=== PATIENT | female | born 1975 | race African-American/Black ===

== ENCOUNTER 2018-05-02 10:27 | Inpatient (IN) ==
[2018-05-02] MEDS ORDERED: ASPIRIN 325 MG TABLET PO STA (11:11)
[2018-05-02] MEDS ORDERED: APIXABAN 5 MG TABLET PO SCH (13:00)
[2018-05-02 13:01] LABS: Basophils % 0.2 % (0.0-0.8); Eosinophils # 0.1 10*3/uL (0.0-0.87); Eosinophils % 1.1 % (0.00-10.9); Hematocrit 34.5 VOL% (35.7-47.0); Hemoglobin 11.3 GM/DL (12.0-16.0); Immature Granulocytes % 0.4 %; Immature Granulocytes Absolute 0.04 #; Lymphocytes # 1.2 10*3/uL (1.4-4.0); Lymphocytes % 10.2 % (21.3-54.2); Mean Corpuscular HGB Conc 32.8 GM/DL (32-36); Mean Corpuscular Hemoglobin 29 PG (27-34); Mean Corpuscular Volume 88.5 FL (87-102); Mean Platelet Volume 9.6 FL (9.6-12.0); Monocytes # 0.8 10*3/uL (0.11-0.8); Monocytes % 7.1 % (1.7-12.7); Neutrophils # 9.2 10*3/uL (1.4-7.4); Platelet Count 278 T/CUMM (130-400); Red Cell Distribution Width 12.8 % (9.3-17.3); White Blood Count 11.3 T/CUMM (4-12)
[2018-05-02 13:14] LABS: Apearance,Urine CLOUDY (Clear); Bacteria,Urine Occasional /HPF (Few); Bilirubin,Urine Negative (Negative); Blood, Urine Negative (Negative); Glucose,Urine (UA) Negative (Negative); Ketones,Urine Negative (Negative); Mucus,Urine Occasional /LPF (Occasional); Nitrite,Urine Negative (Negative); Protein,Urine 30 MG/DL; RBC,Urine 25 /HPF (0-4); Squamous Epithelial Cell,Urine Moderate /HPF (0-10); Urine Color Amber (Yellow); Urine Specific Gravity 1.021 (1.001-1.035); WBC,Urine 23 /HPF (0-6)
[2018-05-02 13:26] LABS: Albumin 2.9 G/DL (3.4-5.0); Bilirubin,Total 1.6 MG/DL (0.2-1.0); Calcium 8.6 MG/DL (8.5-10.1); Osmolality,Calculated 270.1 MOS/KG (273-304); Potassium 4.1 MMOL/L (3.5-5.1); Total Protein 7.7 G/DL (6.4-8.3)
[2018-05-02 14:38] LABS: INR 1.1; PT Patient Result 11.4 SECS; Partial Thromboplastin Time 30.2 SECS (0-40)
[2018-05-02] MEDS ORDERED: ONDANSETRON 4 MG/2 ML VIAL IV PRN (14:38)
[2018-05-02] MEDS: HEPARIN DRIP 25,000 UNITS/500 ML PREMIX IV SCH (17:30)
[2018-05-02] MEDS: WARFARIN 5 MG TABLET PO SCH (17:30)
[2018-05-02] MEDS: cefTRIAXone 1,000 MG in SYRINGE 1 EACH IV SCH (17:30)
[2018-05-03] MEDS: HEPARIN DRIP 25,000 UNITS/500 ML PREMIX IV SCH ×4 (02:21→22:24)
[2018-05-03 03:16] LABS: ABG Base Excess 0.5 MMOL/L (-2.5-2.5); ABG HCO3 24.7 MMOL/L (20-26); ABG Oxygen Saturation 92.3 % (95-100); ABG PCO2 38.4 MM HG (35-48); ABG PH 7.418 (7.35-7.45); ABG PO2 64.6 MM HG (80-95); ABG TCO2 22.4 MMOL/L (23-27); Allen Test Positive; Pt O2 Delivery Device Room Air
[2018-05-03 04:20] LABS: Basophils % 0.2 % (0.0-0.8); Eosinophils # 0.2 10*3/uL (0.0-0.87); Eosinophils % 1.3 % (0.00-10.9); Hematocrit 31.7 VOL% (35.7-47.0); Hemoglobin 10.5 GM/DL (12.0-16.0); Immature Granulocytes % 0.4 %; Immature Granulocytes Absolute 0.05 #; Lymphocytes % 8.5 % (21.3-54.2); Mean Corpuscular HGB Conc 33.1 GM/DL (32-36); Mean Corpuscular Hemoglobin 29 PG (27-34); Mean Corpuscular Volume 86.6 FL (87-102); Mean Platelet Volume 10.1 FL (9.6-12.0); Monocytes # 0.9 10*3/uL (0.11-0.8); Monocytes % 7.9 % (1.7-12.7); Neutrophils # 9.4 10*3/uL (1.4-7.4); Neutrophils % 81.7 % (38.7-73.9); Platelet Count 278 T/CUMM (130-400); Red Blood Count 3.66 MC/CUMM (3.8-5.5); Red Cell Distribution Width 12.7 % (9.3-17.3); White Blood Count 11.5 T/CUMM (4-12)
[2018-05-03 04:37] LABS: INR 1.1; PT Patient Result 11.2 SECS
[2018-05-03 05:07] LABS: Calcium 8.6 MG/DL (8.5-10.1); Osmolality,Calculated 272.8 MOS/KG (273-304); Potassium 3.6 MMOL/L (3.5-5.1); Risk Ratio 5.3; Thyroid Stimulating Hormone 2.29 uIU/ml (0.358-3.74); VLDL CHOLESTEROL 19.6 MG/DL
[2018-05-03 08:59] LABS: INR 1.1; PT Patient Result 11.4 SECS
[2018-05-03 09:10] LABS: Partial Thromboplastin Time 108.3 SECS (0-40)
[2018-05-03] MEDS: amLODIPine 10 MG TABLET PO SCH (10:33)
[2018-05-03] MEDS: PANTOPRAZOLE 40 MG TABLET PO SCH (10:33)
[2018-05-03] MEDS: METOPROLOL TARTRATE 25 MG TABLET PO SCH (10:33)
[2018-05-03] MEDS: cefTRIAXone 1,000 MG in SYRINGE 1 EACH IV SCH (15:43)
[2018-05-03] MEDS: WARFARIN 5 MG TABLET PO SCH (18:47)
[2018-05-03] MEDS: ROSUVASTATIN 10 MG TABLET PO SCH (22:22)
[2018-05-04] MEDS: MORPHINE 4 MG/1 ML VIAL IV PRN ×2 (04:33→18:37)
[2018-05-04 04:51] LABS: Basophils # 0.1 10*3/uL (0.0-0.2); Basophils % 0.4 % (0.0-0.8); Eosinophils # 0.2 10*3/uL (0.0-0.87); Eosinophils % 1.5 % (0.00-10.9); Hematocrit 33.7 VOL% (35.7-47.0); Hemoglobin 11.2 GM/DL (12.0-16.0); Immature Granulocytes % 0.6 %; Immature Granulocytes Absolute 0.08 #; Lymphocytes # 1.5 10*3/uL (1.4-4.0); Lymphocytes % 11.5 % (21.3-54.2); Mean Corpuscular HGB Conc 33.2 GM/DL (32-36); Mean Corpuscular Hemoglobin 29 PG (27-34); Mean Platelet Volume 10.1 FL (9.6-12.0); Monocytes # 1.1 10*3/uL (0.11-0.8); Neutrophils # 10.4 10*3/uL (1.4-7.4); Platelet Count 278 T/CUMM (130-400); Red Blood Count 3.92 MC/CUMM (3.8-5.5); Red Cell Distribution Width 12.8 % (9.3-17.3); White Blood Count 13.3 T/CUMM (4-12)
[2018-05-04 05:29] LABS: Calcium 9.1 MG/DL (8.5-10.1); Osmolality,Calculated 270.1 MOS/KG (273-304); Potassium 3.7 MMOL/L (3.5-5.1)
[2018-05-04] MEDS: HEPARIN DRIP 25,000 UNITS/500 ML PREMIX IV SCH ×3 (08:33→17:46)
[2018-05-04] MEDS: PANTOPRAZOLE 40 MG TABLET PO SCH (08:48)
[2018-05-04] MEDS: amLODIPine 10 MG TABLET PO SCH (08:48)
[2018-05-04] MEDS: METOPROLOL TARTRATE 25 MG TABLET PO SCH (08:48)
[2018-05-04] MEDS ORDERED: BISACODYL 5 MG TABLET PO PRN (10:51)
[2018-05-04] MEDS ORDERED: DOCUSATE SODIUM 100 MG CAPSULE PO PRN (10:51)
[2018-05-04] MEDS: POLYETHYLENE GLYCOL POWDER 17 GM PACK PO SCH (13:49)
[2018-05-04 14:20] LABS: INR 1.1; PT Patient Result 11.5 SECS
[2018-05-04] MEDS: DOCUSATE SODIUM 100 MG CAPSULE PO SCH ×2 (14:53→21:20)
[2018-05-04] MEDS: cefTRIAXone 1,000 MG in SYRINGE 1 EACH IV SCH (14:54)
[2018-05-04] MEDS: WARFARIN 7.5 MG TABLET PO SCH (17:34)
[2018-05-04] MEDS: ROSUVASTATIN 10 MG TABLET PO SCH (21:20)
[2018-05-05] MEDS: MORPHINE 4 MG/1 ML VIAL IV PRN (01:56)
[2018-05-05] MEDS: HEPARIN DRIP 25,000 UNITS/500 ML PREMIX IV SCH ×4 (03:11→23:21)
[2018-05-05 05:50] LABS: Basophils % 0.3 % (0.0-0.8); Eosinophils # 0.2 10*3/uL (0.0-0.87); Eosinophils % 1.5 % (0.00-10.9); Hematocrit 30.2 VOL% (35.7-47.0); Hemoglobin 9.7 GM/DL (12.0-16.0); Immature Granulocytes % 0.8 %; Immature Granulocytes Absolute 0.08 #; Lymphocytes # 1.3 10*3/uL (1.4-4.0); Lymphocytes % 12.7 % (21.3-54.2); Mean Corpuscular HGB Conc 32.1 GM/DL (32-36); Mean Corpuscular Hemoglobin 28 PG (27-34); Mean Corpuscular Volume 88.6 FL (87-102); Mean Platelet Volume 9.9 FL (9.6-12.0); Monocytes # 0.9 10*3/uL (0.11-0.8); Monocytes % 8.5 % (1.7-12.7); Neutrophils # 7.9 10*3/uL (1.4-7.4); Neutrophils % 76.2 % (38.7-73.9); Platelet Count 211 T/CUMM (130-400); Red Blood Count 3.41 MC/CUMM (3.8-5.5); Red Cell Distribution Width 12.5 % (9.3-17.3); White Blood Count 10.3 T/CUMM (4-12)
[2018-05-05 05:54] LABS: INR 1.1
[2018-05-05 06:14] LABS: Osmolality,Calculated 272.8 MOS/KG (273-304); Potassium 3.5 MMOL/L (3.5-5.1)
[2018-05-05] MEDS: PANTOPRAZOLE 40 MG TABLET PO SCH (08:59)
[2018-05-05] MEDS: POLYETHYLENE GLYCOL POWDER 17 GM PACK PO SCH (09:00)
[2018-05-05] MEDS: METOPROLOL TARTRATE 25 MG TABLET PO SCH (09:00)
[2018-05-05] MEDS: DOCUSATE SODIUM 100 MG CAPSULE PO SCH ×3 (09:00→20:46)
[2018-05-05] MEDS: amLODIPine 10 MG TABLET PO SCH (09:00)
[2018-05-05] MEDS: cefTRIAXone 1,000 MG in SYRINGE 1 EACH IV SCH (14:44)
[2018-05-05] MEDS: WARFARIN 7.5 MG TABLET PO SCH (18:24)
[2018-05-05] MEDS: ROSUVASTATIN 10 MG TABLET PO SCH (20:45)
[2018-05-06] MEDS: HEPARIN DRIP 25,000 UNITS/500 ML PREMIX IV SCH ×3 (09:36→18:33)
[2018-05-06] MEDS: DOCUSATE SODIUM 100 MG CAPSULE PO SCH ×3 (09:37→20:52)
[2018-05-06] MEDS: PANTOPRAZOLE 40 MG TABLET PO SCH (09:37)
[2018-05-06] MEDS: amLODIPine 10 MG TABLET PO SCH (09:37)
[2018-05-06] MEDS: METOPROLOL TARTRATE 25 MG TABLET PO SCH (09:37)
[2018-05-06] MEDS: POLYETHYLENE GLYCOL POWDER 17 GM PACK PO SCH (09:37)
[2018-05-06] MEDS: cefTRIAXone 1,000 MG in SYRINGE 1 EACH IV SCH (14:45)
[2018-05-06] MEDS: WARFARIN 7.5 MG TABLET PO SCH (18:03)
[2018-05-06] MEDS: ROSUVASTATIN 10 MG TABLET PO SCH (20:52)
[2018-05-07] MEDS: HEPARIN DRIP 25,000 UNITS/500 ML PREMIX IV SCH ×2 (03:19→15:21)
[2018-05-07 06:59] LABS: INR 1.3; PT Patient Result 13.9 SECS
[2018-05-07] MEDS: DOCUSATE SODIUM 100 MG CAPSULE PO SCH ×3 (09:03→20:22)
[2018-05-07] MEDS: amLODIPine 10 MG TABLET PO SCH (09:03)
[2018-05-07] MEDS: PANTOPRAZOLE 40 MG TABLET PO SCH (09:03)
[2018-05-07] MEDS: POLYETHYLENE GLYCOL POWDER 17 GM PACK PO SCH (09:03)
[2018-05-07] MEDS: METOPROLOL TARTRATE 25 MG TABLET PO SCH (09:03)
[2018-05-07] MEDS: cefTRIAXone 1,000 MG in SYRINGE 1 EACH IV SCH (15:21)
[2018-05-07] MEDS: WARFARIN 7.5 MG TABLET PO SCH (17:35)
[2018-05-07] MEDS: ROSUVASTATIN 10 MG TABLET PO SCH (20:22)
[2018-05-08] MEDS ORDERED: SIMETHICONE CHEW 125 MG TABLET PO SCH (00:30)
[2018-05-08] MEDS: HEPARIN DRIP 25,000 UNITS/500 ML PREMIX IV SCH (01:50)
[2018-05-08 05:48] LABS: INR 1.3
[2018-05-08] MEDS: PANTOPRAZOLE 40 MG TABLET PO SCH (09:22)
[2018-05-08] MEDS: METOPROLOL TARTRATE 25 MG TABLET PO SCH (09:22)
[2018-05-08] MEDS: DOCUSATE SODIUM 100 MG CAPSULE PO SCH ×3 (09:22→21:07)
[2018-05-08] MEDS: amLODIPine 10 MG TABLET PO SCH (09:22)
[2018-05-08] MEDS: POLYETHYLENE GLYCOL POWDER 17 GM PACK PO SCH (09:22)
[2018-05-08] MEDS: cefTRIAXone 1,000 MG in SYRINGE 1 EACH IV SCH (15:35)
[2018-05-08] MEDS: WARFARIN 10 MG TABLET PO SCH (18:41)
[2018-05-08] MEDS: ROSUVASTATIN 10 MG TABLET PO SCH (21:07)
[2018-05-09] MEDS: HEPARIN DRIP 25,000 UNITS/500 ML PREMIX IV SCH ×2 (02:00→14:57)
[2018-05-09 05:42] LABS: Basophils % 0.3 % (0.0-0.8); Eosinophils # 0.3 10*3/uL (0.0-0.87); Eosinophils % 2.7 % (0.00-10.9); Hemoglobin 9.6 GM/DL (12.0-16.0); Immature Granulocytes % 2.1 %; Lymphocytes # 1.5 10*3/uL (1.4-4.0); Lymphocytes % 15.8 % (21.3-54.2); Mean Corpuscular HGB Conc 33.1 GM/DL (32-36); Mean Corpuscular Hemoglobin 28 PG (27-34); Mean Corpuscular Volume 85.8 FL (87-102); Mean Platelet Volume 9.9 FL (9.6-12.0); Monocytes # 0.7 10*3/uL (0.11-0.8); Monocytes % 6.8 % (1.7-12.7); NRBC # 0.05 10*3/uL; Neutrophils % 72.3 % (38.7-73.9); Platelet Count 185 T/CUMM (130-400); Red Blood Count 3.38 MC/CUMM (3.8-5.5); White Blood Count 9.7 T/CUMM (4-12)
[2018-05-09 05:47] LABS: INR 1.5; PT Patient Result 15.6 SECS
[2018-05-09 06:07] LABS: Calcium 8.6 MG/DL (8.5-10.1); Osmolality,Calculated 276.5 MOS/KG (273-304); Potassium 3.7 MMOL/L (3.5-5.1)
[2018-05-09 06:12] LABS: Band Neutrophils 8 % (0-10); Eosinophils 2 % (0-10); Lymphocytes 13 % (20-55); Segmented Neutrophils 73 % (50-85); Total Cells Counted 100
[2018-05-09 06:13] LABS: Anisocytosis Slight; Giant Platelets Few; Platelet Estimate Adequate
[2018-05-09] MEDS: DOCUSATE SODIUM 100 MG CAPSULE PO SCH ×3 (09:01→22:40)
[2018-05-09] MEDS: PANTOPRAZOLE 40 MG TABLET PO SCH (09:01)
[2018-05-09] MEDS: POLYETHYLENE GLYCOL POWDER 17 GM PACK PO SCH (09:02)
[2018-05-09] MEDS: METOPROLOL TARTRATE 25 MG TABLET PO SCH (09:02)
[2018-05-09] MEDS: amLODIPine 10 MG TABLET PO SCH (09:04)
[2018-05-09] MEDS: cefTRIAXone 1,000 MG in SYRINGE 1 EACH IV SCH (16:34)
[2018-05-09] MEDS: WARFARIN 10 MG TABLET PO SCH (17:51)
[2018-05-09] MEDS: ROSUVASTATIN 10 MG TABLET PO SCH (20:18)
[2018-05-10] MEDS: HEPARIN DRIP 25,000 UNITS/500 ML PREMIX IV SCH ×2 (02:55→17:36)
[2018-05-10 04:25] LABS: Basophils % 0.3 % (0.0-0.8); Eosinophils # 0.2 10*3/uL (0.0-0.87); Eosinophils % 1.9 % (0.00-10.9); Hematocrit 28.8 VOL% (35.7-47.0); Hemoglobin 9.4 GM/DL (12.0-16.0); Immature Granulocytes % 2.4 %; Immature Granulocytes Absolute 0.29 #; Lymphocytes # 2.1 10*3/uL (1.4-4.0); Lymphocytes % 17.6 % (21.3-54.2); Mean Corpuscular HGB Conc 32.6 GM/DL (32-36); Mean Corpuscular Hemoglobin 29 PG (27-34); Mean Corpuscular Volume 87.3 FL (87-102); Mean Platelet Volume 9.8 FL (9.6-12.0); Monocytes # 0.8 10*3/uL (0.11-0.8); Monocytes % 6.6 % (1.7-12.7); NRBC # 0.05 10*3/uL; Neutrophils # 8.6 10*3/uL (1.4-7.4); Neutrophils % 71.2 % (38.7-73.9); Platelet Count 175 T/CUMM (130-400); Red Cell Distribution Width 13.1 % (9.3-17.3)
[2018-05-10 04:47] LABS: Band Neutrophils 1 % (0-10); Lymphocytes 22 % (20-55); Platelet Estimate Normal; Segmented Neutrophils 70 % (50-85); Total Cells Counted 100
[2018-05-10 04:48] LABS: Calcium 8.8 MG/DL (8.5-10.1); Osmolality,Calculated 274.7 MOS/KG (273-304); Potassium 3.9 MMOL/L (3.5-5.1)
[2018-05-10 07:15] LABS: INR 1.9; PT Patient Result 19.3 SECS
[2018-05-10] MEDS: METOPROLOL TARTRATE 25 MG TABLET PO SCH (09:08)
[2018-05-10] MEDS: POLYETHYLENE GLYCOL POWDER 17 GM PACK PO SCH (09:08)
[2018-05-10] MEDS: PANTOPRAZOLE 40 MG TABLET PO SCH (09:08)
[2018-05-10] MEDS: DOCUSATE SODIUM 100 MG CAPSULE PO SCH ×3 (09:08→20:51)
[2018-05-10] MEDS: amLODIPine 10 MG TABLET PO SCH (09:08)
[2018-05-10] MEDS: cefTRIAXone 1,000 MG in SYRINGE 1 EACH IV SCH (15:13)
[2018-05-10] MEDS: WARFARIN 10 MG TABLET PO SCH (17:39)
[2018-05-10] MEDS: ROSUVASTATIN 10 MG TABLET PO SCH (20:51)
[2018-05-11 02:14] LABS: Basophils % 0.3 % (0.0-0.8); Eosinophils # 0.2 10*3/uL (0.0-0.87); Eosinophils % 2.4 % (0.00-10.9); Hematocrit 30.4 VOL% (35.7-47.0); Hemoglobin 9.7 GM/DL (12.0-16.0); Immature Granulocytes % 3.3 %; Immature Granulocytes Absolute 0.33 #; Lymphocytes # 1.7 10*3/uL (1.4-4.0); Lymphocytes % 16.7 % (21.3-54.2); Mean Corpuscular HGB Conc 31.9 GM/DL (32-36); Mean Corpuscular Hemoglobin 28 PG (27-34); Mean Corpuscular Volume 88.1 FL (87-102); Mean Platelet Volume 10.2 FL (9.6-12.0); Monocytes # 0.7 10*3/uL (0.11-0.8); Monocytes % 6.9 % (1.7-12.7); NRBC # 0.05 10*3/uL; Neutrophils # 7.1 10*3/uL (1.4-7.4); Neutrophils % 70.4 % (38.7-73.9); Platelet Count 199 T/CUMM (130-400); Red Blood Count 3.45 MC/CUMM (3.8-5.5); Red Cell Distribution Width 13.2 % (9.3-17.3)
[2018-05-11 02:35] LABS: PT Patient Result 20.5 SECS
[2018-05-11 02:45] LABS: Calcium 8.5 MG/DL (8.5-10.1); Osmolality,Calculated 276.5 MOS/KG (273-304); Potassium 3.9 MMOL/L (3.5-5.1)
[2018-05-11 03:35] LABS: Band Neutrophils 1 % (0-10); Eosinophils 1 % (0-10); Lymphocytes 16 % (20-55); Platelet Estimate Normal; Segmented Neutrophils 78 % (50-85); Total Cells Counted 100
[2018-05-11] MEDS: HEPARIN DRIP 25,000 UNITS/500 ML PREMIX IV SCH (05:29)
[2018-05-11 08:16] VITALS: BP 103/69
[2018-05-11] MEDS: amLODIPine 10 MG TABLET PO SCH (09:12)
[2018-05-11] MEDS: PANTOPRAZOLE 40 MG TABLET PO SCH (09:12)
[2018-05-11] MEDS: METOPROLOL TARTRATE 25 MG TABLET PO SCH (09:12)
[2018-05-11] MEDS: DOCUSATE SODIUM 100 MG CAPSULE PO SCH (09:12)
[2018-05-11] MEDS: POLYETHYLENE GLYCOL POWDER 17 GM PACK PO SCH (09:12)
== END 2018-05-11 12:21 | disposition home or self-care (01) | DRG 176 ==
LOC: N.ED 10:27 → N.EDINP 14:36 → SUATTDRO 14:36 → N.5E 15:14
PROVIDERS: ADMIT Internal Medicine